=== PATIENT | female | born 1970 | race Hispanic/Latino ===

== ENCOUNTER → 2018-06-01 | Outpatient (CLI) | payer OTHER ==
--- NOTE | 2018-06-02 14:54 | Diagnostic Imaging Report ---
EXAM: ABDOMINAL ULTRASOUND Date: 06/01/2018 7:59 AM Indication: Comparison: None Technique: Sonographic evaluation of the abdomen. Color doppler was utilized to supplement evaluation. FINDINGS: LIVER: No focal lesion is identified. The liver measures 18 cm in the right midclavicular line. Echotexture is normal. BILIARY: Multiple shadowing gallstones present. The gallbladder wall is not thickened. No pericholecystic fluid is identified. The common bile duct measures 0.3 cm. PANCREAS: The pancreas is incompletely visualized due to overlying bowel gas, but no abnormality identified involving the visualized portions of the pancreas. KIDNEYS: Right: Measures 12.0 cm in length. Left: Measures 11.0 cm in length. Other: No hydronephrosis or solid mass lesion identified. SPLEEN: No splenomegaly. PERITONEUM: No free fluid. VASCULATURE: Aorta: Visualized portions appear unremarkable. Interior vena cava: Visualized portions appear unremarkable. Portal Vein: Nondilated with hepatopedal flow. IMPRESSION: Cholelithiasis without distinct sonographic evidence of cholecystitis. Correlation recommended. Signed by: Dr. Arnaldo House MD on 06/02/2018 2:50 PM
== END ==
LOC: US 07:53 → EDBD 08:00
PROVIDERS: ATTEND Internal Medicine Gastroenterology
DX: R10.11 Right upper quadrant pain (principal)
CPT/HCPCS: 76700

== ENCOUNTER → 2018-06-11 | Outpatient (CLI) | payer OTHER ==
[~2018-06-11] MED LIST: SINCALIDE 3 MCG/VIAL INJ ONE
--- NOTE | 2018-06-11 17:05 | Diagnostic Imaging Report ---
Hepatobiliary Scan with Gallbladder Ejection Fraction Clinical information: Gallstones; RUQ abdominal pain Technique: Following intravenous administration of 6.6 millicuries of Tc-99m mebrofenin, dynamic images of the abdomen in the anterior projection were obtained through 35 minutes. Sincalide (CCK analog) 1.7 micrograms was administered intravenously over 30 minutes with additional imaging for determination of gallbladder ejection fraction. Discussion: Perfusion of the liver is normal. Extraction of tracer by the liver parenchyma is normal. Tracer appears promptly within the biliary tract. The gallbladder begins to fill at 10 minutes post injection of tracer and fills adequately. Tracer is seen in the small bowel by 24 minutes. There is no contractile response by the gallbladder to the pharmacologic dose of sincalide. No emptying of the gallbladder occurs during the 30 minute infusion. Impression: 1. Filling of the gallbladder excludes acute cystic duct obstruction/acute cholecystitis. 2. The gallbladder ejection fraction is undefined as there is no emptying of the gallbladder during the infusion of sincalide. This absence of a contractile response to sincalide supports the clinical diagnosis of chronic cholecystitis/gallbladder dyskinesia. Signed by: Dr. Maxine Chowdary M.D. on 06/11/2018 5:00 PM
== END ==
LOC: NM 08:24
PROVIDERS: ATTEND Internal Medicine Gastroenterology
DX: K80.80 Other cholelithiasis without obstruction (principal)
CPT/HCPCS: 78227; A9537; J2805

== ENCOUNTER 2020-07-09 12:02 | Emergency (ER) | payer OTHER ==
[~2020-07-09] VITALS: Ht 170.2 cm; Wt 78.9 kg
--- OUTSIDE RECORDS SUMMARY | 2020-07-09 12:15 | XMS REPORT | Clinical Summary ---
Author Author [facility] ict Organization [facility] ict Address Unknown Phone Unavailable Care Team Providers Care Instructor Extension Work Name Role Phone PCP Unavailable Allergies Comments Active Allergy Reactions Severity Noted Date No Known Allergies 12/07/2014 Medications End Date Status Medication Sig Dispensed Refills Start Date Active budesonide-formoterol Inhale 2 1 Month 3 05/18 (SYMBICORT HFA) 80-4.5 Puffs by Supply 4 mcg/actuation mouth 2 times inhalerIndications: daily. Asthmatic bronchitis Active ipratropium (ATROVENT) Use 2 Sprays 30 mL 3 0.03 % nasal in each 4 sprayIndications: nostril 2 Asthmatic bronchitis times daily as needed for Rhinitis. Active albuterol (VENTOLIN Inhale 2 6.7 g 3 HFA,PROVENTIL HFA,PROAIR Puffs by 4 HFA) 90 mcg/actuation mouth 4 times inhalerIndications: daily as Asthmatic bronchitis needed for Wheezing. Active mometasone (NASONEX) 50 Use 2 Sprays 17 g 3 1 mcg/actuation nasal by each 4 sprayIndications: Acute nostril route upper respiratory daily. infections of unspecified site Active norethindrone-ethinyl Take 1 tablet 56 tablet 2 estradiol (NORINYL 1+35) by mouth 5 1-35 mg-mcg per daily. tabletIndications: Oral contraceptive pill surveillance Active famotidine (PEPCID) 20 mg Take 1 tablet 180 tablet 1 tabletIndications: GERD by mouth 2 5 (gastroesophageal reflux times daily. disease) Active dexlansoprazole Take 1 90 capsule 2 (DEXILANT) 60 mg delayed capsule by 5 release mouth daily. capsuleIndications: GERD (gastroesophageal reflux disease), Hiatal hernia Active levonorgestrel-ethinyl Take 1 tablet 84 Each 3 1 estradiol (LUTERA, 28,) by mouth 5 0.1-20 mg-mcg daily. tabletIndications: Abnormal uterine bleeding (AUB) Active acetaminophen-codeine Take 1 tablet 40 tablet 0 (TYLENOL/CODEINE #3) by mouth 6 300-30 mg per every 4 hours tabletIndications: as needed for Trigger thumb of left Pain. hand Active Problems Problem Noted Date Trigger thumb of left hand 05/21/2015 Trigger finger 01/29/2015 Breakthrough bleeding on depo provera 12/07/2014 Carpal tunnel syndrome, bilateral 05/30/2014 Cervical polyp 08/03/2013 Thyroid nodule 05/04/2013 Headache(784.0) 01/18/2007 Dermatitis Overview: She was referrred to dermatology biopsy report was negative for psoriasis. [employer] T[employer] told her that she has pso riasis. AR (allergic rhinitis) TMJ arthralgia Immunizations Name Administration Dates Next Due Influenza Vaccine 07/10/2014, 07/03/2011 Family History Medical History Relation Name Comments Asthma Brother X2 Hypothyroid Mother Relation Name Status Comments Brother Alive Brother Alive Brother Alive Brother Alive Brother Father Alive Mother Alive Social History Date Tobacco Use Types Packs/Day Years Used Never Smoker Smokeless Tobacco: Never Used Tobacco Cessation: Counseling Given: No Drinks/Week oz/Week Comments Alcohol Use No Sex Assigned at Date Recorded Not on file Industry Job Start Date Occupation Not on file Not on file Not on file Travel End Travel History Travel Start No recent travel history available. Last Filed Vital Signs Not on file Plan of Treatment Health Maintenance Due Date Last Done Comments Breast Cancer Scrn 11/11/2015 11/10/2014, (Yearly) 02/22/2013 Pap Cervical Cancer Scrn 02/11/2018 02/11/2013 HPV Cervical Cancer Scrn 02/29/2020 02/28/2015, 12/07/2014 Results Not on fileafter 07/09/2019 Insurance Type Payer Benefit Subscriber ID Effective Phone Address Plan / Dates Group [employer] xxxxxxxxxx 2015-P [phone] [address] CHOICE POS HAYDEE W[place]MAN [id number] [facility] SELF-PAY SELF-PAY xxxxxxxxx 2015- [phone] [address] [place] [address]
--- OUTSIDE RECORDS SUMMARY | 2020-07-09 12:15 | XMS REPORT | Continuity of Care Document ---
Author Author [facility] t Organization [facility] Address [address] [place] [address] Phone Unavailable Care Team Providers Care Trimmer Hand Name Role Phone MIKE DELGADO Unavailable Payers Payer Name Policy Type Policy Number Effective Date Expiration Date S ource Problems Condition Name Condition Details Condition Category Status Onset Date Resolution Date Last Treatment Date Treating Clinician Comments Source Trigger thumb of left hand Trigger thumb of left hand Disease Active 2015-05-21 00:00:00 [facility] Trigger finger Trigger finger Disease Active 2015-01-29 00:00:00 [facility] Breakthrough bleeding on depo provera Breakthrough bleeding on depo provera Disease Active 2014-12-07 00:00:00 [facility] Carpal tunnel syndrome, bilateral Carpal tunnel syndrome, bilate ral Disease Active 2014-05-30 00:00:00 Proxible Cervical polyp Cervical polyp Disease Active 2013-08-03 00:00:00 [facility] Thyroid nodule Thyroid nodule Disease Active 2013-05-04 00:00:00 [facility] Headache(784.0) Headache(784.0) Disease Active 2007-01-18 00:00:00 [facility] Dermatitis Dermatitis Disease Active Ov erview: She was referrred to dermatology biopsy report was negative for psoriasis. [employer] told her that she has psoriasis. [facility] AR (allergic rhinitis) AR (allergic rhinitis) Disease Active [facility] TMJ arthralgia TMJ arthralgia Disease Active [facility] Allergies, Adverse Reactions, Alerts Allergy Name Allergy Type Status Severity Reaction(s) Onset Date Inacti ve Date Treating Clinician Comments Source No Known Allergies DA Active U 2016-11-25 00:00:00 [facility] Family History Family Member Diagnosis Comments Start Date Stop Date Source Natural brother Asthma [facility]mon [facility] Natural mother Hypothyroid Filemon [facility] Social History Social Habit Start Date Stop Date Quantity Comments Source Sex Assigned At [facility] Alcohol intake 2015-10-05 00:00:00 2015-10-05 00:00:00 Current non-drinker of alcohol (finding) [facility] Smoking Status Start Date Stop Date Source Never smoker [facility] Medications Ordered Medication Name Filled Medication Name Start Date Stop Da te Current Medication? Ordering Clinician Indication Dosage Frequency Signature (SIG) Comments Components Source acetaminophen-codeine (TYLENOL/CODEINE #3) 300-30 mg per tab let 2015-09-25 00:00:00 Yes Trigger thumb of left hand 1{tbl} Take 1 tablet by mouth every 4 hours as needed for Pain. [facility] levonorgestrel-ethinyl estradiol (LUTERA, 28,) 0.1-20 mg-mcg tablet 2015-08-13 00:00:00 Yes Abnormal uterine bleeding (AUB) 1{tbl} QD Take 1 tablet by mouth daily. [facility] dexlansoprazole (DEXILANT) 60 mg delayed release capsule 2015-03-15 00:00:00 Yes Hiatal hernia 60mg QD Take 1 capsule by mouth jose gaona. [facility] famotidine (PEPCID) 20 mg tablet 2015-03-02 00:00:00 Yes GERD (gastroesophageal reflux disease) 20mg Q.5D Take 1 tablet by mouth 2 times daily. [facility] norethindrone-ethinyl estradiol (NORINYL 1+35) 1-35 mg-mcg p er tablet 2015-02-28 00:00:00 Yes Oral contraceptive pill survei llance 1{tbl} QD Take 1 tablet by mouth daily. [facility] budesonide-formoterol (SYMBICORT HFA) 80-4.5 mcg/actuation i nhaler 2014-06-09 00:00:00 Yes Asthmatic bronchitis 2{puff} Q.5D Inhale 2 Puffs by mouth 2 times daily. [facility] ipratropium (ATROVENT) 0.03 % nasal spray 2014-06-09 00:00:0 0 Yes Asthmatic bronchitis 2{spray} Use 2 Sprays in eac h nostril 2 times daily as needed for Rhinitis. [facility] albuterol (VENTOLIN HFA,PROVENTIL HFA,PROAIR HFA) 90 mcg/act uation inhaler 2014-06-09 00:00:00 Yes Asthmatic bronchitis 2{puff} Inhale 2 Puffs by mouth 4 times daily as needed for Wheezing. [facility] mometasone (NASONEX) 50 mcg/actuation nasal spray 2014-06-09 00:00:00 Yes Acute upper respiratory infections of unspecified site 2{spray} QD Use 2 Sprays by each nostril route daily. [facility] Immunizations Ordered Immunization Name Filled Immunization Name Date Status Comments Source Influenza Vaccine 2014-07-10 00:00:00 Completed [facility] Influenza Vaccine 2011-07-03 00:00:00 Completed [facility] Procedures This patient has no known procedures. Plan of Care Planned Activity Planned Date Details Comments Source [facility] Scheduled Test 2020-02-29 00:00:00 Screening for ev gnant neoplasm of cervix (procedure) [code = 734673471] [facility] Scheduled Test 2018-02-11 00:00:00 Screening for ev gnant neoplasm of cervix (procedure) [code = 257805780] [facility] Scheduled Test 2015-11-11 00:00:00 Breast Cancer Scrn (Yearly) [code = Breast Cancer Scrn (Yearly)] [facility] Results Test Description Test Time Test Comments Results Result Comments Source [facility] 2018-08-06 17:14:00 RUN DATE: 08/06/18 [facility] PAGE 1 RUN TIME: 787 Specimen Inquiry RUN USER: INTERFACE PATIENT: MARGARET CONNELL LOC: [facility] U #: [id number] AGE/SX: 48/F ROOM: RE08/05/18REG DR: Lonnie Varela MD : 74 BED: DIS: STATUS: [facility] TLOC: SPEC #: [id number] RECD: 08/05/18 STATUS: PANFILO REQ #: [id number] JONATHAN: 08/05/18- SUBM DR: Lonnie Varela MD ENTERED: 08/05/18 SP TYPE: GALLBLADD OTHR DR: Rebel Fenton MD ORDERED: GROSS COPIES TO: Rebel Fenton MD [address] [place], [place] [id number] Lonnie Varela MD [address] [place], [place] [id number] MARKERS: ABNORMAL TISSUE, INTRADEPARTMENTAL CONSULT, GALLBLADDER PROCEDURES: GROSS (08/06/18-1345) TISSUES: 1. GALLBLADDER, NOS 2. LIVER, NOS - BX CLINICAL HISTORY COLLECTION DATE: 08/05/18 CHOLECYSTITIS COMMENT Intradepartmental consultation: DMW FINAL DIAGNOSIS Gallbladder, cholecystectomy: CHRONIC CHOLECYSTITIS CHOLELITHIASIS FOCAL CHOLESTEROLOSIS NEGATIVE FOR MALIGNANCY Liver, needle biopsy: BLAND HYPOCELLULAR FIBROUS TISSUE WITH MINUTE AGGREGATE OF UNREMARKABLE HEPATIC PARENCHYMA NEGATIVE FOR MALIGNANCY SCAR FORMATION VS TANGENTIALLY SECTIONED HEPATIC CAPSULE CONTINUED ON NEXT PAGE RUN DATE: 08/06/18 [facility] PAGE 2 RUN TIME: 1715 Specimen Inquiry RUN USER: INTERFACE SPEC #: [id number] PATIENT: MARGARET CONNELL [facility] #[id number] (Continued) FINAL DIAGNOSIS (Continued) RRB/ D [address], [address] MACROSCOPIC The first specimen is received in formalin, labeled with the patient's name, and identified as "gallbladder". It consists of a previously incised gallbladder measuring 7.2 X 2.7 X 1.8 cm. The serosal surface is unremarkable. The gallbladder contains multiple green multifaceted gallstones measuring 1.1 cm each. The gallbladder mucosa is velvety and has faint yellow specks. The gallbladder wall measures 0.2 cm in thickness. A 0.3 cm segment of cystic duct is attached to the gallbladder. Samples of the specimen are submitted for microscopic evaluation in cassette (1). The second specimen is received in formalin, labeled with the patient's name, and identified as "liver bx". It consists of a brown-jurado fragment of tissue measuring 0.4 X 0.2 X 0.2 cm. It is submitted for microscopic evaluation in cassette (2). GROSS PERFORMED AT [facility] [address] [place] [address] (p)[phone] MICROSCOPIC MICROSCOPIC PERFORMED AT [facility] All of the stains, including any controls performed, stain appropriately. [facility] [address] [place] [address] (P)[phone] PERFORMING SITE Processed at: [facility], [place] [address] [place] [id number] CONTINUED ON NEXT PAGE RUN DATE: 08/06/18 [place] [facility] PAGE 3 RUN TIME: 1715 Specimen Inquiry RUN USER: INTERFACE SPEC #: [id number] PATIENT: MARGARET CONNELL [facility] #[id number] (Angel barrett) Signed SIGNATURE ON FILE Wild Curtis 08/06/18 1714 END OF REPORT HEPTOBILIARY W PHARM 2018-06-11 16:59:00 [place] [address] Patient Name: MARGARET CONNELL MR #: [id number] : 1970 Age/Sex: 48/F Req #: [id number] Adm Physician: Ordered by: MIKE DELGADO MD Report #: [id number] [facility] Room/Bed: Procedure: [id number] NM/HEPTOBILIARY W PHARM Exam Date: 06/11/18 Exam Time: 919 REPORT STATUS: Signed Hepatobiliary Scan with Gallbladder Ejection Fraction Clinical information: Gallstones; RUQ abdominal pain Technique: Following intravenous administration of 6.6 millicuries of Tc-99m mebrofenin, dynamic images of the abdomen in the anterior projection were obtained through 35 minutes. Sincalide (CCK analog) 1.7 micrograms was administered intravenously over 30 minutes with additional imaging for determination of gallbladder ejection fraction. Discussion: Perfusion of the liver is normal. Extraction of tracer by the liver parenchyma is normal. Tracer appears promptly within the biliary tract. The gallbladder begins to fill at 10 minutes post injection of tracer and fills adequately. Tracer is seen in the small bowel by 24 minutes. There is no contractile response by the gallbladder to the pharmacologic dose of sincalide. No emptying of the gallbladder occurs during the 30 minute infusion. Impression: 1. Filling of the gallbladder excludes acute cystic duct obstruction/acute cholecystitis. 2. The gallbladder ejection fraction is undefined as there is no emptying of the gallbladder during the infusion of sincalide. This absence of a contractile response to sincalide supports the clinical diagnosis of chronic cholecystitis/gallbladder dyskinesia. Signed by: Dr. Bladimir Chowdary M.D. on 06/11/2018 5:00 PM Dictated By: BLADIMIR CHOWDARY MD 99 Transcribed By: KEESHA on 06/11/181699 COPY TO: MIKE DELGADO MD US ABDOMEN COMPLETE 2018-06-02 14:49:00 [place] [address] Patient Name: MARGARET CONNELL MR #: [id number] : 1970 Age/Sex: 48/F Req #: [id number] Adm Physician: Ordered by: MIKE DELGADO MD Report #: [id number] Location: Room/Bed: Procedure: [id number] US/US ABDOMEN COMPLETE Exam Date: 06/01/18 Exam Time: 0814 REPORT STATUS: Signed EXAM: ABDOMINAL ULTRASOUND Date: 06/01/2018 7:59 AM Indication: Comparison: None Technique: Sonographic evaluation of the abdomen. Color doppler was utilized to supplement evaluation. FINDINGS: LIVER: No focal lesion is identified. The liver measures 18 cm in the right midclavicular line. Echotexture is normal. BILIARY: Multiple shadowing gallstones present. The gallbladder wall is not thickened. No pericholecystic fluid is identified. The common bile duct measures 0.3 cm. PANCREAS: The pancreas is incompletely visualized due to overlying bowel gas, but no abnormality identified involving the visualized portions of the pancreas. KIDNEYS: Right: Measures 12.0 cm in length. Left: Measures 11.0 cm in length. Other: No hydronephrosis or solid mass lesion identified. SPLEEN: No splenomegaly. PERITONEUM: No free fluid. VASCULATURE: Aorta: Visualized portions appear unremarkable. Interior vena cava: Visualized portions appear unremarkable. Portal Vein: Nondilated with hepatopedal flow. IMPRESSION: Cholelithiasis without distinct sonographic evidence of cholecystitis. Correlation recommended. Signed by: Dr. Sivakumar House MD on 06/02/2018 2:50 PM Dictated By: SIVAKUMAR HOUSE MD [id number] Transcribed By: KEESHA on 06/02/18 7093 COPY TO: MIKE DELGADO MD
[2020-07-09] MEDS ORDERED: ONDANSETRON HCL INJ 2MG/ML 2ML 2 MG/ML VIAL IV STA (12:25)
[2020-07-09] MEDS ORDERED: TETANUS/DIPHTHERIA TOX ADULT 0.5 ML SYR IM ONE (12:30)
[2020-07-09] MEDS ORDERED: BACITRACIN ZINC 0.9GM TP ONE (12:30)
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
[2020-07-09 12:58] LABS: BASOPHILS # (AUTO) 0.1 (0.0-0.1); BASOPHILS % 0.4 % (0.0-1.0); EOSINOPHILS # (AUTO) 0.1 (0.0-0.4); EOSINOPHILS % 0.7 % (0.0-6.0); HEMATOCRIT 38.9 % (34.2-44.1); LYMPHOCYTES # (AUTO) 2.2 (1.0-3.2); LYMPHOCYTES % 13.3 % (18.0-39.1); MEAN CORPUSCULAR HEMOGLOBIN 29.6 pg (28-32); MEAN CORPUSCULAR HGB CONC 33.4 g/dL (31-35); MEAN CORPUSCULAR VOLUME 88.6 fL (81-99); MONOCYTES # (AUTO) 0.8 (0.2-0.8); MONOCYTES % 4.9 % (4.4-11.3); NEUTROPHILS # (AUTO) 13.4 (2.1-6.9); PLATELET COUNT 370 x10e3/uL (140-360); RED BLOOD COUNT 4.39 x10e6/uL (3.6-5.1); RED CELL DISTRIBUTION WIDTH 12.9 % (11.7-14.4)
[2020-07-09] MEDS ORDERED: HYDROMORPHONE 1MG/1ML INJ IV ONE (13:15)
[2020-07-09 13:21] LABS: ALANINE AMINOTRANSFERASE 165 IU/L (0-55); ALBUMIN 3.9 g/dL (3.5-5.0); ALBUMIN/GLOBULIN RATIO 1.1 (0.8-2.0); ALKALINE PHOSPHATASE 64 IU/L (40-150); BLOOD UREA NITROGEN 9 mg/dL (7-26); BUN/CREATININE RATIO 12 (6-25); CARBON DIOXIDE 24 mmol/L (22-29); CHLORIDE 101 mmol/L (98-107); CREATININE, SERUM 0.76 mg/dL (0.57-1.11); EST GLOMERULAR FILTRATION RATE > 60 ML/MIN (60-); GLUCOSE 120 mg/dL (74-118); LIPASE 74 U/L (8-78); SODIUM 136 mmol/L (136-145)
--- NOTE | 2020-07-09 13:30 | Diagnostic Imaging Report ---
CT BRAIN WO HISTORY: Trauma COMPARISON: None. TECHNIQUE: Noncontrast axial scans were obtained from skull base to the vertex. Coronal and sagittal reconstructions obtained from the axial data. One or more of the following dose reduction techniques were used: Automated exposure control, adjustment of the mA and/or kV according to patient size, and/or utilization of iterative reconstruction technique. DISCUSSION: Scalp/Skull: Unremarkable. Brain sulci: Appropriate for patient's age. Ventricles: Normal in size and configuration. No hydrocephalus. Extra-axial spaces: Focal prominence of the subarachnoid space along the right anterior falx, measuring up to 2.6 cm size, is associated with mild mass effect on the medial right orbitofrontal lobe. This is likely due to a arachnoid cyst. No additional masses or fluid collections. Parenchyma: No abnormal densities. No mass, hemorrhage, or large vascular territory acute infarct. Dural sinuses: No abnormal densities. Sellar/Suprasellar region: Intact. Skull base: Intact. Incidental findings: None. IMPRESSION: 1. No acute intracranial abnormalities. 2. Incidental suspected 2.6 cm arachnoid cyst along the right anterior falx exerts mild mass effect on the medial right orbitofrontal lobe. Signed by: Dr. Ray Rangel M.D. on 07/09/2020 1:27 PM
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
--- NOTE | 2020-07-09 14:25 | Diagnostic Imaging Report ---
EXAM: CT ABDOMEN AND PELVIS WITH CONTRAST CLINICAL INDICATION: Fall TECHNIQUE: CT abdomen and pelvis was performed, following the administration of contrast, as per department protocol. Axial, sagittal, and coronal reconstructions were obtained. IV CONTRAST: 100 cc of Isovue-300 ORAL CONTRAST: Not administered, limiting the sensitivity of this exam for evaluation of bowel, retroperitoneum, and intraabdominal fluid collections. RADIATION DOSE REDUCTION:This exam was performed according to the departmental dose-optimization program which includes automated exposure control, adjustment of the mA and/or kV according to patient size and/or use of iterative reconstruction technique. COMPARISON: None FINDINGS: LOWER CHEST: Dependent atelectasis in the lungs. A subpleural bleb in the right lung base. LIVER: A few small round hypoattenuating areas in the liver for example a 3 mm area on series 2 image 12, another area in the left lobe, series 2 image 22, another area cc 2 image 30 could represent liver cysts. There is an irregularly shaped hypoattenuating area at the junction of the segments 4 and 5 of the liver. This probably represents focal fat. Liver laceration is not entirely ruled out given the findings in the right adrenal area. There is likely diffuse fatty infiltration of the liver. GALLBLADDER: Status post cholecystectomy BILE DUCTS: No pathologic process. PANCREAS: No pathologic process. SPLEEN: No pathologic process. ADRENALS: The left adrenal is unremarkable. The right adrenal gland shows a relatively normal medial limb. But part of the body and the lateral limb are blurred by soft tissue density infiltrating the periadrenal fatty tissues, tissues around the right half of the suprarenal inferior vena cava and a C shaped fashion and also associated with thickening of the right symone of the hemidiaphragm. This is most likely consistent with a hematoma. There is no extravasation of contrast from the inferior vena cava which also appears to be otherwise patent. KIDNEYS AND URETERS: No pathologic process. URINARY BLADDER: No pathologic process. GASTROINTESTINAL TRACT: No pathologic process. APPENDIX: No inflammatory changes in region of appendix. LYMPH NODES: No lymphadenopathy. PERITONEUM/MESENTERY: No free air, significant free fluid, mass or fluid collection. VESSELS: No vascular abnormality. Please see above regarding the IVC. ADDITIONAL RETROPERITONEAL FINDINGS: None. REPRODUCTIVE ORGANS:No pathologic process. Likely status post bilateral tubal ligation. ABDOMINAL AND PELVIC BROCK: No pathologic process. MUSCULOSKELETAL: No pathologic process. ADDITIONAL FINDINGS: None. IMPRESSION: Right adrenal, gosia adrenal, inferior vena cava and diaphragmatic symone hematoma as described above. Segment 4/5 area of hypoattenuation in the liver could be laceration versus focal fat. Standardized Report: [id number]. Signed by: Braxton Shultz MD on 07/09/2020 2:22 PM
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
[2020-07-09 14:35] LABS: CLARITY,URINE CLEAR (CLEAR); COLOR,URINE YELLOW (YELLOW); KETONES,URINE NEGATIVE (NEGATIVE); LEUKOCYTE ESTERASE ,URINE NEGATIVE (NEGATIVE); NITRITE,URINE NEGATIVE (NEGATIVE); PROTEIN,URINE DIPSTICK 2+ (NEGATIVE)
--- NOTE | 2020-07-09 14:35 | Diagnostic Imaging Report ---
X-ray right knee History: Fall Findings: No acute fracture, subluxation, radiopaque foreign body or significant soft tissue swelling. Impression: As above. Signed by: Braxton Shultz MD on 07/09/2020 2:32 PM
[2020-07-09 14:36] LABS: BILIRUBIN,URINE NEGATIVE (NEGATIVE); URINE UROBILINOGEN 0.2 mg/dL (0.2 - 1)
[2020-07-09 14:37] LABS: BACTERIA,URINE FEW /HPF; EPITHELIAL CELLS,URINE FEW /LPF; WBC,URINE (MAN) 0-5 /HPF (0-5)
--- NOTE | 2020-07-09 14:39 | Diagnostic Imaging Report ---
X-ray right and left hands History: Fall Comparison: None Findings: See impression Impression: No acute fracture, subluxation, radiopaque foreign body, significant soft tissue swelling. Signed by: Braxton Shultz MD on 07/09/2020 2:35 PM
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
--- NOTE | 2020-07-09 16:09 | NUR ---
REPORT TO SILVANA
--- NOTE | 2020-07-09 16:38 | Diagnostic Imaging Report ---
X-ray right shoulder scapular Y view. History: Follow-up shoulder. AP view of the shoulder nondiagnostic. Findings: There is no dislocation of the right humeral head. Impression: As above. Signed by: Braxton Shultz MD on 07/09/2020 4:35 PM
== END 2020-07-09 16:42 | disposition other institution (70) ==
LOC: ER 12:12
DX: S22.41XA Multiple fractures of ribs, right side, initial encounter for closed fracture (principal); S37.812A Contusion of adrenal gland, initial encounter; S60.512A Abrasion of left hand, initial encounter; S60.511A Abrasion of right hand, initial encounter; R10.31 Right lower quadrant pain; W05.1XXA Fall from non-moving nonmotorized scooter, initial encounter; Y93.I9 Activity, other involving external motion; Y92.488 Other paved roadways as the place of occurrence of the external cause
CPT/HCPCS: 36415; 70450; 71101; 72125; 73020; 73030; 73130; 73562; 74177; 80053; 81001; 83690; 84702; 85025; 90471; 90714; 99285; J1170; J2405

== ENCOUNTER → 2020-09-03 | Day surgery (SDC) | payer OTHER ==
[2020-08-29 13:35] LABS: BASOPHILS # (AUTO) 0.1 (0.0-0.1); BASOPHILS % 0.9 % (0.0-1.0); EOSINOPHILS # (AUTO) 0.2 (0.0-0.4); EOSINOPHILS % 3.1 % (0.0-6.0); HEMATOCRIT 40.6 % (34.2-44.1); HEMOGLOBIN 13.3 g/dL (12.0-16.0); LYMPHOCYTES # (AUTO) 2.4 (1.0-3.2); LYMPHOCYTES % 36.4 % (18.0-39.1); MEAN CORPUSCULAR HEMOGLOBIN 28.6 pg (28-32); MEAN CORPUSCULAR HGB CONC 32.8 g/dL (31-35); MEAN CORPUSCULAR VOLUME 87.3 fL (81-99); MONOCYTES # (AUTO) 0.3 (0.2-0.8); MONOCYTES % 5.2 % (4.4-11.3); NEUTROPHILS # (AUTO) 3.5 (2.1-6.9); NEUTROPHILS % 53.9 % (38.7-80.0); PLATELET COUNT 508 x10e3/uL (140-360); RED BLOOD COUNT 4.65 x10e6/uL (3.6-5.1); RED CELL DISTRIBUTION WIDTH 12.9 % (11.7-14.4)
[~2020-09-03] MED LIST changes: +ACETAMINOPHEN/CODEINE 300MG - 30MG TAB ONE; +ALBUTEROL0.63 MG/3 INH; +ASHWAGANDHA RO300 MG PO; +BEDOYECTA PO; +CALCIUM PO; +CEFAZOLIN SOD 1 GM/NS 50ML 50 ML IV ONE; +DEXAMETHASONE SOD PHOS INJ 4 MG/ML VIAL ONE; +DOXYCYCLINE HY100 M3 PO; +EXCEDRIN EXTRA1 EAC1 PO; +FAMOTIDINE 20 MG/2 ML VIAL IV ONE; +FENTANYL CITRATE/PF 100MCG/2 ML INJ ONE; +FISH OIL 1,2001 EACH PO; +FLAXSEED OIL1000 MG PO; +HAIR, SKIN AND1 EAC3 PO; +KETOROLAC TROMETHAMINE 30 MG/ML VIAL ONE; +LIDOCAINE HCL 2% LOCAL INJ 5 ML SDV VIAL INJ ONE; +MAGNESIUM PO; +MEGARED OMEGA-1 EAC1 PO; +MELATONIN3 MG PO; +METOCLOPRAMIDE HCL 10 MG/2ML VIAL ONE; +MIDAZOLAM HCL 2 MG/2 ML VIAL ONE; +MONTELUKAST SOD10 MG PO; +MULTI-VITAMIN1 EACH PO; +NAPROXEN SODIU550 MG PO; +ONDANSETRON HCL INJ 2MG/ML 2ML 2 MG/ML VIAL ONE; +OSTEO BI-FLEX1 EAC2 PO; +POTASSIUM PO; +PROBIOTIC PO; +PROPOFOL IV EMULSION 10 MG/ML 20 ML VIAL ONE; +SEVOFLURANE INHAL SOLN 250 ML PEN BTL ONE; -SINCALIDE 3 MCG/VIAL INJ ONE; +TUMERIC PO; +VITAMIN C1000 MG PO; +VITAMIN D250 MC1 PO; +ZINC SULFATE220 MG PO; +[UNRECOGNIZED DRUG - OTHER] PO
[2020-09-03 09:20] VITALS: BP 120/62
== END | disposition home or self-care (01) ==
LOC: OR 05:35
PROVIDERS: ATTEND Specialist
DX: S62.616A Displaced fracture of proximal phalanx of right little finger, initial encounter for closed fracture (principal); K21.9 Gastro-esophageal reflux disease without esophagitis; K58.9 Irritable bowel syndrome, unspecified; J45.909 Unspecified asthma, uncomplicated; W17.89XA Other fall from one level to another, initial encounter; Z01.812 Encounter for preprocedural laboratory examination; Z01.818 Encounter for other preprocedural examination; Z20.822 Contact with and (suspected) exposure to COVID-19
CPT/HCPCS: 26727; 36415; 71046; 85025; C1713; J0690; J1100; J1885; J2001; J2250; J2405; J2704; J2765; J3010; U0002; 76000

== ENCOUNTER 2020-09-16 13:02 | Inpatient (IN) | payer OTHER ==
[~2020-09-16] VITALS: Ht 170.2 cm; Wt 78.9 kg
[~2020-09-16 13:02] MED LIST changes: -ACETAMINOPHEN/CODEINE 300MG - 30MG TAB ONE; -ASHWAGANDHA RO300 MG PO; -BEDOYECTA PO; -CALCIUM PO; -CEFAZOLIN SOD 1 GM/NS 50ML 50 ML IV ONE; -DEXAMETHASONE SOD PHOS INJ 4 MG/ML VIAL ONE; -DOXYCYCLINE HY100 M3 PO; -EXCEDRIN EXTRA1 EAC1 PO; -FAMOTIDINE 20 MG/2 ML VIAL IV ONE; -FENTANYL CITRATE/PF 100MCG/2 ML INJ ONE; -FISH OIL 1,2001 EACH PO; -FLAXSEED OIL1000 MG PO; -HAIR, SKIN AND1 EAC3 PO; -KETOROLAC TROMETHAMINE 30 MG/ML VIAL ONE; -LIDOCAINE HCL 2% LOCAL INJ 5 ML SDV VIAL INJ ONE; -MAGNESIUM PO; -MEGARED OMEGA-1 EAC1 PO; -MELATONIN3 MG PO; -METOCLOPRAMIDE HCL 10 MG/2ML VIAL ONE; -MIDAZOLAM HCL 2 MG/2 ML VIAL ONE; -MULTI-VITAMIN1 EACH PO; -NAPROXEN SODIU550 MG PO; -ONDANSETRON HCL INJ 2MG/ML 2ML 2 MG/ML VIAL ONE; -OSTEO BI-FLEX1 EAC2 PO; -POTASSIUM PO; -PROBIOTIC PO; -PROPOFOL IV EMULSION 10 MG/ML 20 ML VIAL ONE; -SEVOFLURANE INHAL SOLN 250 ML PEN BTL ONE; -TUMERIC PO; -VITAMIN C1000 MG PO; -VITAMIN D250 MC1 PO; -ZINC SULFATE220 MG PO; -[UNRECOGNIZED DRUG - OTHER] PO
[2020-09-16] MEDS ORDERED: SODIUM CHLORIDE 0.9% 1000ML 1,000 ML IV STA (13:15)
[2020-09-16] MEDS ORDERED: VANCOMYCIN 1GM/NS 250 ML 250 ML IV ONE (13:30)
[2020-09-16] MEDS: PIPER-TAZ 3.375 GM 50 ML IV SCH ×2 (13:39→20:24)
[2020-09-16 14:03] LABS: BASOPHILS # (AUTO) 0.1 (0.0-0.1); BASOPHILS % 0.5 % (0.0-1.0); EOSINOPHILS # (AUTO) 0.3 (0.0-0.4); EOSINOPHILS % 2.8 % (0.0-6.0); HEMATOCRIT 40.2 % (34.2-44.1); HEMOGLOBIN 12.9 g/dL (12.0-16.0); LYMPHOCYTES # (AUTO) 2.4 (1.0-3.2); LYMPHOCYTES % 24.5 % (18.0-39.1); MEAN CORPUSCULAR HEMOGLOBIN 28.4 pg (28-32); MEAN CORPUSCULAR HGB CONC 32.1 g/dL (31-35); MEAN CORPUSCULAR VOLUME 88.5 fL (81-99); MONOCYTES # (AUTO) 0.6 (0.2-0.8); MONOCYTES % 5.7 % (4.4-11.3); NEUTROPHILS # (AUTO) 6.6 (2.1-6.9); NEUTROPHILS % 66.2 % (38.7-80.0); PLATELET COUNT 318 x10e3/uL (140-360); RED BLOOD COUNT 4.54 x10e6/uL (3.6-5.1); RED CELL DISTRIBUTION WIDTH 14.1 % (11.7-14.4)
[2020-09-16 14:20] LABS: INR 0.87; PROTHROMBIN TIME 12.3 seconds (11.9-14.5)
[2020-09-16 14:21] LABS: PARTIAL THROMBOPLASTIN TIME 34.5 seconds (23.8-35.5)
[2020-09-16 14:30] LABS: ALANINE AMINOTRANSFERASE 14 IU/L (0-55); ALBUMIN 4.2 g/dL (3.5-5.0); ALBUMIN/GLOBULIN RATIO 1.1 (0.8-2.0); ALKALINE PHOSPHATASE 59 IU/L (40-150); ANION GAP 13.8 mmol/L (8-16); BLOOD UREA NITROGEN 12 mg/dL (7-26); BUN/CREATININE RATIO 18 (6-25); CARBON DIOXIDE 25 mmol/L (22-29); CHLORIDE 103 mmol/L (98-107); CREATININE, SERUM 0.68 mg/dL (0.57-1.11); EST GLOMERULAR FILTRATION RATE > 60 ML/MIN (60-); GLUCOSE 85 mg/dL (74-118); MAGNESIUM 1.9 MG/DL (1.3-2.1); POTASSIUM 3.8 mmol/L (3.5-5.1); SODIUM 138 mmol/L (136-145)
[2020-09-16] MEDS ORDERED: ACETAMINOPHEN 325 MG TAB PO PRN (15:00)
[2020-09-16] MEDS ORDERED: SODIUM CHLORIDE 0.9% 1000ML 1,000 ML IV SCH (15:00)
[2020-09-16] MEDS: ONDANSETRON HCL INJ 2MG/ML 2ML 2 MG/ML VIAL IV PRN ×2 (17:00→21:35)
[2020-09-16] MEDS: MORPHINE SULFATE INJ 2 MG/ML SYR IV PRN ×2 (17:00→21:35)
[2020-09-17] MEDS: MORPHINE SULFATE INJ 2 MG/ML SYR IV PRN ×2 (01:28→05:50)
[2020-09-17] MEDS: ONDANSETRON HCL INJ 2MG/ML 2ML 2 MG/ML VIAL IV PRN ×2 (01:28→05:50)
[2020-09-17] MEDS: VANCOMYCIN 1GM/NS 250 ML 250 ML IV SCH ×3 (01:28→21:40)
[2020-09-17] MEDS: PIPER-TAZ 3.375 GM 50 ML IV SCH ×5 (03:00→23:33)
[2020-09-17 05:59] LABS: BASOPHILS # (AUTO) 0.1 (0.0-0.1); BASOPHILS % 0.6 % (0.0-1.0); EOSINOPHILS # (AUTO) 0.4 (0.0-0.4); EOSINOPHILS % 4.5 % (0.0-6.0); HEMATOCRIT 32.4 % (34.2-44.1); HEMOGLOBIN 10.4 g/dL (12.0-16.0); LYMPHOCYTES # (AUTO) 2.3 (1.0-3.2); LYMPHOCYTES % 30.4 % (18.0-39.1); MEAN CORPUSCULAR HEMOGLOBIN 28.4 pg (28-32); MEAN CORPUSCULAR HGB CONC 32.1 g/dL (31-35); MEAN CORPUSCULAR VOLUME 88.5 fL (81-99); MONOCYTES # (AUTO) 0.5 (0.2-0.8); MONOCYTES % 6.5 % (4.4-11.3); NEUTROPHILS # (AUTO) 4.5 (2.1-6.9); NEUTROPHILS % 57.7 % (38.7-80.0); PLATELET COUNT 247 x10e3/uL (140-360); RED BLOOD COUNT 3.66 x10e6/uL (3.6-5.1); RED CELL DISTRIBUTION WIDTH 14.2 % (11.7-14.4)
[2020-09-17 06:45] LABS: ALANINE AMINOTRANSFERASE 12 IU/L (0-55); ALBUMIN 3.1 g/dL (3.5-5.0); ALBUMIN/GLOBULIN RATIO 1.3 (0.8-2.0); ALKALINE PHOSPHATASE 42 IU/L (40-150); ANION GAP 11.5 mmol/L (8-16); BLOOD UREA NITROGEN 10 mg/dL (7-26); BUN/CREATININE RATIO 17 (6-25); CALCIUM 7.5 mg/dL (8.4-10.2); CARBON DIOXIDE 22 mmol/L (22-29); CHLORIDE 109 mmol/L (98-107); CREATININE, SERUM 0.58 mg/dL (0.57-1.11); EST GLOMERULAR FILTRATION RATE > 60 ML/MIN (60-); GLUCOSE 88 mg/dL (74-118); POTASSIUM 3.5 mmol/L (3.5-5.1); SODIUM 139 mmol/L (136-145)
[2020-09-17] MEDS ORDERED: ASHWAGANDHA RO300 MG PO (16:14)
[2020-09-17] MEDS ORDERED: FISH OIL 1,2001 EACH PO (16:14)
[2020-09-17] MEDS ORDERED: EXCEDRIN EXTRA1 EAC1 PO (16:14)
[2020-09-17] MEDS ORDERED: PROBIOTIC PO (16:14)
[2020-09-17] MEDS ORDERED: MAGNESIUM PO (16:14)
[2020-09-17] MEDS ORDERED: CALCIUM PO (16:14)
[2020-09-17] MEDS ORDERED: BEDOYECTA PO (16:14)
[2020-09-17] MEDS ORDERED: MULTI-VITAMIN1 EACH PO (16:14)
[2020-09-17] MEDS ORDERED: ZINC SULFATE220 MG PO (16:14)
[2020-09-17] MEDS ORDERED: VITAMIN D250 MC1 PO (16:14)
[2020-09-17] MEDS ORDERED: [UNRECOGNIZED DRUG - OTHER] PO (16:14)
[2020-09-17] MEDS ORDERED: POTASSIUM PO (16:14)
[2020-09-17] MEDS ORDERED: HAIR, SKIN AND1 EAC3 PO (16:14)
[2020-09-17] MEDS ORDERED: FLAXSEED OIL1000 MG PO (16:14)
[2020-09-17] MEDS ORDERED: MEGARED OMEGA-1 EAC1 PO (16:14)
[2020-09-17] MEDS ORDERED: OSTEO BI-FLEX1 EAC2 PO (16:14)
[2020-09-17] MEDS ORDERED: VITAMIN C1000 MG PO (16:14)
[2020-09-17] MEDS ORDERED: TUMERIC PO (16:14)
[2020-09-17 16:16] VITALS: BP 134/69
[2020-09-17] MEDS ORDERED: MELATONIN3 MG PO (16:18)
[2020-09-17 16:26] VITALS: BP 134/69
[2020-09-17 16:31] VITALS: BP 134/69
[2020-09-17] MEDS ORDERED: CAFFEINE PO PRN (17:00)
[2020-09-17] MEDS ORDERED: ACETAMINOPHEN PO PRN (17:00)
[2020-09-17] MEDS ORDERED: ACETAMINOPHEN/CODEINE 300MG - 30MG TAB PO PRN (17:00)
[2020-09-17] MEDS ORDERED: ASPIRIN PO PRN (17:00)
[2020-09-17] MEDS ORDERED: SODIUM CHLORIDE 0.9% 250ML 250 ML ONE (17:05)
[2020-09-17] MEDS: KETOROLAC TROMETHAMINE 30 MG/ML VIAL IV PRN (18:15)
[2020-09-17 20:00] VITALS: BP 156/79
[2020-09-17] MEDS ORDERED: DOCUSATE SODIUM 100 MG CAP PO PRN (21:15)
[2020-09-17 21:40] VITALS: BP 156/79
[2020-09-18] VITALS (8 sets, daily range): BP systolic 112–139; BP diastolic 64–82
[2020-09-18] MEDS: KETOROLAC TROMETHAMINE 30 MG/ML VIAL IV PRN ×4 (00:10→21:20)
[2020-09-18] MEDS: PIPER-TAZ 3.375 GM 50 ML IV SCH ×4 (06:26→23:00)
[2020-09-18 06:28] LABS: ANION GAP 13.6 mmol/L (8-16); BLOOD UREA NITROGEN 11 mg/dL (7-26); BUN/CREATININE RATIO 18 (6-25); CALCIUM 8.2 mg/dL (8.4-10.2); CARBON DIOXIDE 23 mmol/L (22-29); CHLORIDE 106 mmol/L (98-107); CREATININE, SERUM 0.62 mg/dL (0.57-1.11); EST GLOMERULAR FILTRATION RATE > 60 ML/MIN (60-); GLUCOSE 92 mg/dL (74-118); POTASSIUM 3.6 mmol/L (3.5-5.1); SODIUM 139 mmol/L (136-145)
[2020-09-18 06:30] LABS: HCG,QUANTITATIVE < 1.20 mIU/mL (0-10)
[2020-09-18] MEDS: VANCOMYCIN 1GM/NS 250 ML 250 ML IV SCH ×2 (08:32→21:10)
[2020-09-18] MEDS ORDERED: MAGNESIUM HYDROXIDE 30 ML UDC PO PRN (11:45)
[2020-09-19 00:05] VITALS: BP 120/67
[2020-09-19] MEDS ORDERED: DOXYCYCLINE HY100 M3 PO ×2 (00:31→12:35)
[2020-09-19] MEDS ORDERED: NAPROXEN SODIU550 MG PO (00:31)
[2020-09-19] MEDS: KETOROLAC TROMETHAMINE 30 MG/ML VIAL IV PRN ×2 (03:30→11:28)
[2020-09-19 04:20] VITALS: BP 118/71
[2020-09-19] MEDS: PIPER-TAZ 3.375 GM 50 ML IV SCH ×2 (06:19→12:23)
[2020-09-19 07:36] VITALS: BP 97/53
[2020-09-19] MEDS: VANCOMYCIN 1GM/NS 250 ML 250 ML IV SCH (08:10)
[2020-09-19 08:46] VITALS: BP 97/53
[2020-09-19 11:53] VITALS: BP 107/62
[2020-09-19] MEDS ORDERED: ONDANSETRON HCL 4 MG ORAL DISINTEGRATING TAB PO PRN (13:15)
== END 2020-09-19 15:53 | disposition home or self-care (01) | DRG 560 ==
LOC: ER 13:29 → ERHOLD 15:20 → MED/SURG3 09-17 15:30 → OBSVTOIN 09-17 21:12 → MED/SURG3 09-18 19:03
PROVIDERS: ADMIT Internal Medicine; ATTEND Internal Medicine
DX: T84.69XA Infection and inflammatory reaction due to internal fixation device of other site, initial encounter (principal); L03.113 Cellulitis of right upper limb; D64.9 Anemia, unspecified; Z86.16 Personal history of COVID-19; Z20.822 Contact with and (suspected) exposure to COVID-19; J45.909 Unspecified asthma, uncomplicated
CPT/HCPCS: 36415; 80048; 80053; 80202; 83735; 84702; 85025; 85610; 85730; 87040; 96374; 96375; 99284; G0378; J1885; J2270; J2405; J2543; J3370; J7030; J7050; U0002

== ENCOUNTER → 2021-02-13 | Outpatient (RCR) | payer OTHER ==
[~2021-02-13] MED LIST changes: +ASHWAGANDHA RO300 MG PO; +BEDOYECTA PO; +CALCIUM PO; +DOXYCYCLINE HY100 M3 PO; +EXCEDRIN EXTRA1 EAC1 PO; +FISH OIL 1,2001 EACH PO; +FLAXSEED OIL1000 MG PO; +HAIR, SKIN AND1 EAC3 PO; +MAGNESIUM PO; +MEGARED OMEGA-1 EAC1 PO; +MELATONIN3 MG PO; +MULTI-VITAMIN1 EACH PO; +NAPROXEN SODIU550 MG PO; +OSTEO BI-FLEX1 EAC2 PO; +POTASSIUM PO; +PROBIOTIC PO; +TUMERIC PO; +VITAMIN C1000 MG PO; +VITAMIN D250 MC1 PO; +ZINC SULFATE220 MG PO; +[UNRECOGNIZED DRUG - OTHER] PO
== END ==
LOC: OT 02-05 12:00
PROVIDERS: ATTEND Physician Assistant
DX: S62.616D Displaced fracture of proximal phalanx of right little finger, subsequent encounter for fracture with routine healing (principal)

== ENCOUNTER 2021-03-14 14:00 | Outpatient (RCR) | payer OTHER | END 2021-03-16 | LOC: OT 14:00 | PROVIDERS: ATTEND Physician Assistant | DX: S62.616D Displaced fracture of proximal phalanx of right little finger, subsequent encounter for fracture with routine healing (principal) ==

== ENCOUNTER → 2021-04-16 | Outpatient (RCR) | payer OTHER | LOC: OT 03-20 12:56 | PROVIDERS: ATTEND Physician Assistant | DX: S62.616D Displaced fracture of proximal phalanx of right little finger, subsequent encounter for fracture with routine healing (principal) ==

== ENCOUNTER 2021-04-23 16:18 | Outpatient (RCR) | payer OTHER | END 2021-05-16 | LOC: OT 16:18 | PROVIDERS: ATTEND Physician Assistant | DX: S62.616D Displaced fracture of proximal phalanx of right little finger, subsequent encounter for fracture with routine healing (principal) ==